=== PATIENT | female | born 1950 | race Two or more races ===

== ENCOUNTER → 2019-05-30 11:00 | Outpatient (CLI) | payer OTHER | END | disposition home or self-care (01) | LOC: LAB 11:00 → EKG 11:00 | DX: I10 Essential (primary) hypertension (principal) ==

== ENCOUNTER 2025-07-26 06:00 | Day surgery (SDC) | payer OTHER ==
[~2025-07-26 06:00] MED LIST: SYNTHROID88 MCG PO; VITAMIN D; ZOCOR20 MG PO
[2025-07-26] MEDS ORDERED: CEFAZOLIN SODIUM 1,000 MG VIAL ONE (07:41)
[2025-07-26] MEDS ORDERED: METHYLERGONOVINE MALEATE 0.2 MG/ML AMPUL ONE ×2 (08:31→14:47)
[2025-07-26] MEDS ORDERED: ONDANSETRON HCL 2 MG/ML VIAL ONE (10:44)
[2025-07-26] MEDS ORDERED: ONDANSETRON HCL 2 MG/ML VIAL IV ONE (10:55)
[2025-07-26] MEDS ORDERED: METHYLERGONOVINE MALEATE 0.2 MG/ML AMPUL IM SCH (12:15)
== END 2025-07-26 15:30 | disposition home or self-care (01) ==
LOC: CIR.AMB 06:00
PROVIDERS: ATTEND Obstetrics & Gynecology
DX: D25.0 Submucous leiomyoma of uterus (principal); N95.0 Postmenopausal bleeding; Z88.6 Allergy status to analgesic agent

== ENCOUNTER 2025-07-26 22:29 | Inpatient (IN) | payer OTHER ==
[~2025-07-26] VITALS: Ht 162.6 cm; Wt 66.2 kg
[2025-07-27] MEDS ORDERED: MORPHINE SULFATE 4 MG/ML VIAL IV STA (03:56)
[2025-07-27] MEDS ORDERED: 0.9 % SODIUM CHLORIDE 1,000 ML IV STA (03:56)
[2025-07-27 04:45] LABS: BASO % 0.2 % (0.1-1.2); EOS # 0.00 (0.04-0.54); EOS % 0.0 % (0.7-7.0); LYMPH # 0.35 (1.18-3.74); LYMPH % 5.9 % (19.3-53.1); MEAN PLATELET VOLUME 10.70 fl (9.4-12.4); MONO # 0.24 (0.24-0.82); MONO % 4.0 % (4.7-12.5); NEUT # 5.35 (1.56-6.13); NEUT % 89.7 % (34.0-71.1); RED CELL DISTRIBUTION WIDTH 12.8 % (11.6-14.4)
[2025-07-27 05:06] LABS: INR 1.04
[2025-07-27 05:09] LABS: ALT/SGPT 20.0 U/L (12-78); AST/SGOT 11.0 U/L (15-37); BILIRUBIN TOTAL 0.68 mg/dL (0.3-1.2); BUN CREA RATIO 24.0 (7.0-25.0); CREATININE SERUM 0.79 mg/dL (0.55-1.02); GFR 70.76; GLOBULINA 2.9 G/DL (2.4-3.5); GLUCOSE FASTING 171.0 mg/dL (65-100); OSMOLALITY SERUM 291.0 MOSM/KG (275-295)
[2025-07-27] MEDS ORDERED: BARIUM SULFATE 450 ML ORAL.SUSP PO ONE (07:44)
[2025-07-27] MEDS ORDERED: MORPHINE SULFATE 4 MG/ML VIAL IV PRN (07:45)
[2025-07-27] MEDS ORDERED: PROMETHAZINE HCL 25 MG/ML AMPUL ONE (08:59)
[2025-07-27] MEDS ORDERED: PROMETHAZINE HCL 25 MG/ML AMPUL IV ONE (09:00)
[2025-07-27] MEDS ORDERED: RINGERS SOLUTION,LACTATED 1,000 ML IV SCH (13:30)
[2025-07-27 13:50] VITALS: BP 109/66; O2SAT 97
[2025-07-27] MEDS ORDERED: FAMOTIDINE/PF 20 MG/2 ML VIAL IV SCH (14:19)
[2025-07-27] MEDS ORDERED: PIPERACILLIN/TAZOBACTAM SODIUM 3.375 GM in 0.9 % SODIUM CHLORIDE 100 ML IV SCH (14:20)
[2025-07-27] MEDS ORDERED: ONDANSETRON HCL 2 MG/ML VIAL IM PRN ×2 (14:30→19:15)
[2025-07-27] MEDS ORDERED: FAMOTIDINE/PF 20 MG/2 ML VIAL ONE (14:43)
[2025-07-27] MEDS ORDERED: PIPERACILLIN/TAZOBACTAM SODIUM 3.375 GM VIAL IV ONE (14:43)
[2025-07-27] MEDS ORDERED: ENALAPRILAT DIHYDRATE 1.25 MG/ML VIAL IV PRN (14:45)
[2025-07-27 15:05] LABS: COVID-19 AG NEGATIVE (NEGATIVE)
[2025-07-27 21:30] VITALS: BP 99/63; O2SAT 95
[2025-07-28 01:15] VITALS: BP 113/74; O2SAT 95
[2025-07-28] MEDS ORDERED: PATIENTS OWN MEDICATION (MEDICAMENTO EN PISO) PO SCH (06:00)
[2025-07-28 08:00] VITALS: BP 125/74; O2SAT 95
[2025-07-28 08:05] LABS: BASO % 0.1 % (0.1-1.2); EOS # 0.00 (0.04-0.54); EOS % 0.0 % (0.7-7.0); LYMPH # 0.68 (1.18-3.74); LYMPH % 6.9 % (19.3-53.1); MEAN PLATELET VOLUME 11.10 fl (9.4-12.4); MONO # 0.59 (0.24-0.82); MONO % 6.0 % (4.7-12.5); NEUT # 8.55 (1.56-6.13); NEUT % 86.6 % (34.0-71.1); RED CELL DISTRIBUTION WIDTH 13.3 % (11.6-14.4)
[2025-07-28 08:13] LABS: BUN CREA RATIO 28.0 (7.0-25.0); CREATININE SERUM 0.79 mg/dL (0.55-1.02); GFR 70.76; GLUCOSE FASTING 111.0 mg/dL (65-100); OSMOLALITY SERUM 285.0 MOSM/KG (275-295)
[2025-07-28] MEDS ORDERED: ENOXAPARIN SODIUM 40 MG/0.4 ML SYRINGE SUBCUTANEO SCH (09:00)
[2025-07-28] MEDS ORDERED: DIPHENHYDRAMINE HCL 50 MG/ML VIAL 1ML IV STA (12:04)
[2025-07-28] MEDS ORDERED: DIPHENHYDRAMINE HCL 50 MG/ML VIAL 1ML ONE (12:18)
[2025-07-28] MEDS ORDERED: ACETAMINOPHEN 500 MG GEL..CAP PO PRN (15:00)
[2025-07-28 16:00] VITALS: BP 108/71; O2SAT 94
[2025-07-28] MEDS ORDERED: LEVALBUTEROL HCL 0.63 MG/3 ML SOLUTION IH SCH (18:30)
[2025-07-29 00:03] VITALS: BP 128/78; O2SAT 95
[2025-07-29 07:51] LABS: BASO % 0.1 % (0.1-1.2); EOS # 0.02 (0.04-0.54); EOS % 0.2 % (0.7-7.0); LYMPH # 0.63 (1.18-3.74); LYMPH % 5.8 % (19.3-53.1); MEAN PLATELET VOLUME 10.90 fl (9.4-12.4); MONO # 0.50 (0.24-0.82); MONO % 4.6 % (4.7-12.5); NEUT # 9.68 (1.56-6.13); NEUT % 88.8 % (34.0-71.1); RED CELL DISTRIBUTION WIDTH 13.2 % (11.6-14.4)
[2025-07-29 08:13] LABS: BUN CREA RATIO 28.0 (7.0-25.0); CREATININE SERUM 0.75 mg/dL (0.55-1.02); GFR 75.13; GLUCOSE FASTING 116.0 mg/dL (65-100); OSMOLALITY SERUM 285.0 MOSM/KG (275-295)
[2025-07-29 08:21] VITALS: BP 140/79; O2SAT 96
[2025-07-29 11:03] LABS: URINE APPEARANCE Cloudy; URINE BILIRRUBIN Negative (NEGATIVE); URINE BLOOD Small; URINE COLOR Yellow; URINE GLUCOSE Negative (NEGATIVE); URINE KETONE Trace (NEGATIVE); URINE LEUKOCYTE Negative; URINE NITRATE Negative; URINE UROBILINOGEN 0.2 E.U./dl
[2025-07-29 11:23] LABS: URINE CRYSTALS MANY /HPF; URINE RBC 0-3 /HPF; URINE WBC 0-2 /hpf
[2025-07-29 11:25] LABS: URINE BACTERIA FEW; URINE PROTEIN 100 (NEGATIVE)
[2025-07-29] MEDS ORDERED: MAGNESIUM HYDROXIDE 30 ML BLIST.PACK PO SCH (14:00)
[2025-07-29 16:00] VITALS: BP 145/88; O2SAT 95
[2025-07-29] MEDS ORDERED: POLYETHYLENE GLYCOL 3350 17 GM BLIST.PACK PO SCH (17:00)
[2025-07-29] MEDS ORDERED: SUCRALFATE 1 G TABLET PO SCH (17:00)
[2025-07-29] MEDS ORDERED: PANTOPRAZOLE SODIUM 40 MG TABLET.DR PO SCH (17:00)
[2025-07-29 23:52] VITALS: BP 120/63; O2SAT 97
[2025-07-30 07:30] LABS: BASO % 0.1 % (0.1-1.2); EOS # 0.12 (0.04-0.54); EOS % 1.5 % (0.7-7.0); LYMPH # 0.59 (1.18-3.74); LYMPH % 7.3 % (19.3-53.1); MEAN PLATELET VOLUME 10.40 fl (9.4-12.4); MONO # 0.74 (0.24-0.82); MONO % 9.1 % (4.7-12.5); NEUT # 6.59 (1.56-6.13); NEUT % 81.0 % (34.0-71.1); RED CELL DISTRIBUTION WIDTH 13.2 % (11.6-14.4)
[2025-07-30 08:07] LABS: ALT/SGPT 17.0 U/L (12-78); AST/SGOT 17.0 U/L (15-37); BILIRUBIN TOTAL 0.79 mg/dL (0.3-1.2); BUN CREA RATIO 24.0 (7.0-25.0); CREATININE SERUM 0.79 mg/dL (0.55-1.02); GFR 70.76; GLOBULINA 2.7 G/DL (2.4-3.5); GLUCOSE FASTING 122.0 mg/dL (65-100); OSMOLALITY SERUM 287.0 MOSM/KG (275-295)
[2025-07-30 08:19] VITALS: BP 133/77; O2SAT 95
[2025-07-30 16:00] VITALS: BP 142/81; O2SAT 96
[2025-07-31 00:55] VITALS: BP 119/72; O2SAT 95
[2025-07-31 08:53] VITALS: BP 135/80; O2SAT 97
[2025-07-31 14:38] LABS: BASO % 0.3 % (0.1-1.2); EOS # 0.09 (0.04-0.54); EOS % 0.8 % (0.7-7.0); LYMPH # 1.16 (1.18-3.74); LYMPH % 10.1 % (19.3-53.1); MEAN PLATELET VOLUME 9.80 fl (9.4-12.4); MONO # 1.04 (0.24-0.82); MONO % 9.1 % (4.7-12.5); NEUT # 8.50 (1.56-6.13); NEUT % 74.3 % (34.0-71.1); RED CELL DISTRIBUTION WIDTH 13.5 % (11.6-14.4)
[2025-07-31 15:32] LABS: BAND MAN 3.0 %; EOSINOPHIL MAN 1.0 %; LYMPHOCYTE MAN 6.0 %; MONOCYTE MAN 10.0 %; MYELOCYTE 3.0 %; NEUTROPHILS MAN 77.0 %
[2025-07-31 16:02] VITALS: BP 136/61; O2SAT 97
[2025-08-01 01:37] VITALS: BP 137/72; O2SAT 95
[2025-08-01 08:26] VITALS: BP 132/79; O2SAT 94
[2025-08-01] MEDS ORDERED: CEFTRIAXONE SODIUM 2,000 MG in 0.9 % SODIUM CHLORIDE 100 ML IV SCH (09:59)
[2025-08-01 10:15] LABS: ABG PH 7.478 (7.35-7.45); ABG PO2 67.9 mmHg (80-100)
[2025-08-01 10:16] LABS: BICARBONATE 24.1 mmol/l (23-25); o2 21 %
[2025-08-01] MEDS ORDERED: ACETAMINOPHEN 500 MG GEL..CAP PO PRN (16:45)
[2025-08-01 16:56] VITALS: BP 138/85; O2SAT 99
[2025-08-01] MEDS ORDERED: SOD FERRIC GLUC COMPLX/SUCROSE 62.5 MG/5 ML AMPUL IV SCH (17:00)
[2025-08-01 18:29] LABS: INR 1.04
[2025-08-02 01:47] VITALS: BP 134/83; O2SAT 98
[2025-08-02 06:20] LABS: BASO % 0.2 % (0.1-1.2); EOS # 0.11 (0.04-0.54); EOS % 0.4 % (0.7-7.0); LYMPH # 1.65 (1.18-3.74); LYMPH % 6.3 % (19.3-53.1); MEAN PLATELET VOLUME 9.60 fl (9.4-12.4); MONO # 1.54 (0.24-0.82); MONO % 5.9 % (4.7-12.5); NEUT # 21.13 (1.56-6.13); NEUT % 81.4 % (34.0-71.1); RED CELL DISTRIBUTION WIDTH 13.9 % (11.6-14.4)
[2025-08-02 07:02] LABS: ALT/SGPT 20.0 U/L (12-78); AST/SGOT 22.0 U/L (15-37); BILIRUBIN TOTAL 0.44 mg/dL (0.3-1.2); BUN CREA RATIO 26.0 (7.0-25.0); CREATININE SERUM 0.5 mg/dL (0.55-1.02); GFR 119.96; GLOBULINA 2.8 G/DL (2.4-3.5); GLUCOSE FASTING 85.0 mg/dL (65-100); OSMOLALITY SERUM 281.0 MOSM/KG (275-295)
[2025-08-02 07:51] LABS: BAND MAN 21.0 %; LYMPHOCYTE MAN 7.0 %; MONOCYTE MAN 6.0 %; NEUTROPHILS MAN 66.0 %
[2025-08-02 08:00] VITALS: BP 146/80; O2SAT 95
[2025-08-02] MEDS ORDERED: DIATRIZOATE MEGLUMINE, SODIUM 30 ML BOTTLE PO NR (16:50)
[2025-08-02 18:58] VITALS: BP 148/82; O2SAT 95
[2025-08-02] MEDS ORDERED: PEG3350/SOD SULF,BICARB,CL/KCL 4,000 ML GALLON PO NR (19:00)
[2025-08-03] VITALS: BP 144/75; O2SAT 97
[2025-08-03] MEDS ORDERED: NA PHOS,M-B/NA PHOS,DI-BA 1 BOTTLE ENEMA RECTAL NR (06:00)
[2025-08-03 06:16] LABS: BASO % 0.2 % (0.1-1.2); EOS # 0.14 (0.04-0.54); EOS % 0.6 % (0.7-7.0); LYMPH # 1.33 (1.18-3.74); LYMPH % 5.2 % (19.3-53.1); MEAN PLATELET VOLUME 9.40 fl (9.4-12.4); MONO # 1.38 (0.24-0.82); MONO % 5.4 % (4.7-12.5); NEUT # 21.06 (1.56-6.13); NEUT % 82.9 % (34.0-71.1); RED CELL DISTRIBUTION WIDTH 14.3 % (11.6-14.4)
[2025-08-03 06:59] LABS: BAND MAN 11.0 %; LYMPHOCYTE MAN 4.0 %; MONOCYTE MAN 5.0 %; NEUTROPHILS MAN 80.0 %
[2025-08-03 07:02] LABS: BUN CREA RATIO 18.0 (7.0-25.0); CREATININE SERUM 0.55 mg/dL (0.55-1.02); GFR 107.46; GLUCOSE FASTING 90.0 mg/dL (65-100); OSMOLALITY SERUM 284.0 MOSM/KG (275-295)
[2025-08-03 08:00] VITALS: BP 139/70; O2SAT 99
[2025-08-03 16:09] VITALS: BP 145/81; O2SAT 95; O2SAT 98
[2025-08-04 00:30] VITALS: BP 147/78; O2SAT 95
[2025-08-04 08:00] VITALS: BP 153/80; O2SAT 97
[2025-08-04 12:30] LABS: BASO % 0.3 % (0.1-1.2); EOS # 0.03 (0.04-0.54); EOS % 0.1 % (0.7-7.0); LYMPH # 1.27 (1.18-3.74); LYMPH % 4.5 % (19.3-53.1); MEAN PLATELET VOLUME 8.80 fl (9.4-12.4); MONO # 1.48 (0.24-0.82); MONO % 5.3 % (4.7-12.5); NEUT # 23.95 (1.56-6.13); NEUT % 85.3 % (34.0-71.1); RED CELL DISTRIBUTION WIDTH 14.6 % (11.6-14.4)
[2025-08-04 17:49] VITALS: BP 126/75; O2SAT 98
[2025-08-05 01:02] VITALS: BP 143/75; O2SAT 97
[2025-08-05 08:39] VITALS: BP 154/78; O2SAT 95
[2025-08-05] MEDS ORDERED: DIATRIZOATE MEGLUMINE, SODIUM 30 ML BOTTLE PO NR (09:15)
[2025-08-05] MEDS ORDERED: CEFEPIME HCL 2,000 MG VIAL IV SCH (13:00)
[2025-08-05 16:00] VITALS: BP 146/77; O2SAT 95
[2025-08-05 16:10] LABS: BASO % 0.3 % (0.1-1.2); EOS # 0.07 (0.04-0.54); EOS % 0.3 % (0.7-7.0); LYMPH # 1.10 (1.18-3.74); LYMPH % 4.9 % (19.3-53.1); MEAN PLATELET VOLUME 9.20 fl (9.4-12.4); MONO # 1.21 (0.24-0.82); MONO % 5.4 % (4.7-12.5); NEUT # 18.97 (1.56-6.13); NEUT % 85.2 % (34.0-71.1); RED CELL DISTRIBUTION WIDTH 14.6 % (11.6-14.4)
[2025-08-05 16:35] LABS: BAND MAN 2.0 %; LYMPHOCYTE MAN 10.0 %; METAMYELOCYTE 3.0 %; MONOCYTE MAN 5.0 %; NEUTROPHILS MAN 78.0 %
[2025-08-05] MEDS ORDERED: LOPERAMIDE HCL 2 MG CAPSULE PO ONE (23:00)
[2025-08-06 00:42] VITALS: BP 134/82; O2SAT 98
[2025-08-06 08:00] VITALS: BP 132/77
[2025-08-06] MEDS ORDERED: PIPERACILLIN/TAZOBACTAM SODIUM 4.5 GM in 0.9 % SODIUM CHLORIDE 100 ML IV SCH (09:42)
[2025-08-06] MEDS ORDERED: SIMETHICONE 125 MG CAPSULE PO SCH (11:00)
[2025-08-07 02:01] VITALS: BP 141/83; O2SAT 94
[2025-08-07 08:00] VITALS: BP 121/77; O2SAT 94
[2025-08-07 17:17] VITALS: BP 120/69; O2SAT 95
[2025-08-08 00:58] VITALS: BP 119/71; O2SAT 97
[2025-08-08] MEDS ORDERED: NA PHOS,M-B/NA PHOS,DI-BA 1 BOTTLE ENEMA RECTAL NR (05:00)
[2025-08-08 06:51] LABS: BASO % 0.5 % (0.1-1.2); EOS # 0.06 (0.04-0.54); EOS % 0.6 % (0.7-7.0); LYMPH # 0.96 (1.18-3.74); LYMPH % 9.4 % (19.3-53.1); MEAN PLATELET VOLUME 9.10 fl (9.4-12.4); MONO # 0.90 (0.24-0.82); MONO % 8.8 % (4.7-12.5); NEUT # 8.01 (1.56-6.13); NEUT % 78.7 % (34.0-71.1); RED CELL DISTRIBUTION WIDTH 14.6 % (11.6-14.4)
[2025-08-08 06:56] LABS: BUN CREA RATIO 11.0 (7.0-25.0); CREATININE SERUM 0.66 mg/dL (0.55-1.02); GFR 87.07; GLUCOSE FASTING 112.0 mg/dL (65-100); OSMOLALITY SERUM 282.0 MOSM/KG (275-295)
[2025-08-08 08:00] VITALS: BP 133/77; O2SAT 95
[2025-08-08] MEDS ORDERED: POTASSIUM CHLORIDE IN WATER 100 ML IV NR (08:15)
[2025-08-08] MEDS ORDERED: MIDAZOLAM HCL 2 MG/2 ML VIAL IV ONE (12:15)
[2025-08-08] MEDS ORDERED: DIPHENHYDRAMINE HCL 50 MG/ML VIAL 1ML IV ONE (12:15)
[2025-08-08] MEDS ORDERED: fentaNYL CITRATE 50 MCG/ML AMPUL IV PUSH ONE (12:15)
[2025-08-08 16:00] VITALS: BP 131/71; O2SAT 94
[2025-08-08] MEDS ORDERED: AMINO ACIDS 1 EACH TABLET PO SCH (17:00)
[2025-08-09 02:23] VITALS: BP 134/75; O2SAT 96
[2025-08-09 07:30] LABS: BUN CREA RATIO 11.0 (7.0-25.0); CREATININE SERUM 0.55 mg/dL (0.55-1.02); GFR 107.46; GLUCOSE FASTING 92.0 mg/dL (65-100); OSMOLALITY SERUM 282.0 MOSM/KG (275-295)
[2025-08-09] MEDS ORDERED: MAGNESIUM SULFATE IN WATER 50 ML IV NR (08:15)
[2025-08-09 08:23] VITALS: BP 132/73; O2SAT 94
[2025-08-09] MEDS ORDERED: POTASSIUM CHLORIDE IN WATER 40 MEQ/100 ML PIGGYBAG IV ONE (08:47)
[2025-08-09] MEDS ORDERED: POTASSIUM CHLORIDE IN WATER 40 MEQ/100 ML PIGGYBAG IV SCH ×2 (09:00→17:00)
[2025-08-09 16:24] VITALS: BP 128/57; O2SAT 94
[2025-08-10 00:08] VITALS: BP 124/69; O2SAT 96
[2025-08-10 07:05] LABS: BUN CREA RATIO 13.0 (7.0-25.0); CREATININE SERUM 0.63 mg/dL (0.55-1.02); GFR 91.88; GLUCOSE FASTING 98.0 mg/dL (65-100); OSMOLALITY SERUM 281.0 MOSM/KG (275-295)
[2025-08-10 08:21] VITALS: BP 129/74; O2SAT 95
[2025-08-10] MEDS ORDERED: SPIRONOLACTONE 50 MG TABLET PO SCH (09:54)
[2025-08-10] MEDS ORDERED: POTASSIUM CHLORIDE 10 MEQ CAPSULE PO NR (10:00)
[2025-08-10] MEDS ORDERED: MAGNESIUM SULFATE IN WATER 4 GM/100 ML PIGGYBACK IV NR (10:00)
[2025-08-10] MEDS ORDERED: POTASSIUM CHLORIDE IN WATER 40 MEQ/100 ML PIGGYBAG IV NR (11:15)
[2025-08-10] MEDS ORDERED: POTASSIUM CHLORIDE IN WATER 40 MEQ/100 ML PIGGYBAG IV SCH (12:00)
[2025-08-10 16:21] VITALS: BP 111/57; O2SAT 95
[2025-08-11 00:34] VITALS: BP 128/75; O2SAT 97
[2025-08-11 08:30] VITALS: BP 131/75; O2SAT 96
[2025-08-11 11:58] LABS: BUN CREA RATIO 11.0 (7.0-25.0); CREATININE SERUM 0.8 mg/dL (0.55-1.02); GFR 69.74; GLUCOSE FASTING 143.0 mg/dL (65-100); OSMOLALITY SERUM 279.0 MOSM/KG (275-295)
[2025-08-11 15:57] VITALS: BP 143/70; O2SAT 95
[2025-08-12 00:43] VITALS: BP 131/77; O2SAT 97
[2025-08-12 08:00] VITALS: BP 134/75; O2SAT 96
[2025-08-12] MEDS ORDERED: POTASSIUM CHLORIDE 10 MEQ CAPSULE PO NR (09:30)
[2025-08-12 16:00] VITALS: BP 111/53; O2SAT 96
[2025-08-13 00:37] VITALS: BP 109/61; O2SAT 97
[2025-08-13] MEDS ORDERED: DIATRIZOATE MEGLUMINE, SODIUM 30 ML BOTTLE PO NR (06:00)
[2025-08-13 06:55] LABS: BASO % 1.1 % (0.1-1.2); EOS # 0.18 (0.04-0.54); EOS % 3.9 % (0.7-7.0); LYMPH # 1.52 (1.18-3.74); LYMPH % 32.8 % (19.3-53.1); MEAN PLATELET VOLUME 9.40 fl (9.4-12.4); MONO # 0.68 (0.24-0.82); NEUT # 2.15 (1.56-6.13); NEUT % 46.2 % (34.0-71.1); RED CELL DISTRIBUTION WIDTH 15.0 % (11.6-14.4)
[2025-08-13 07:02] LABS: MONO % 14.7 % (4.7-12.5)
[2025-08-13 07:07] LABS: BUN CREA RATIO 12.0 (7.0-25.0); CREATININE SERUM 0.66 mg/dL (0.55-1.02); GFR 87.07; GLUCOSE FASTING 86.0 mg/dL (65-100); OSMOLALITY SERUM 283.0 MOSM/KG (275-295)
[2025-08-13 08:18] VITALS: BP 138/76; O2SAT 97
[2025-08-13] MEDS ORDERED: SODIUM CL 0.9% 100 ML IV.SOLN IV ONE ×2 (14:18→16:17)
[2025-08-13 15:43] VITALS: BP 146/74; O2SAT 95
[2025-08-14 00:30] VITALS: BP 136/78; O2SAT 99
[2025-08-14 11:11] VITALS: BP 138/71; O2SAT 97
[2025-08-14] MEDS ORDERED: BUPIVACAINE HCL/MPF 0.5% 30ML VIAL ONE (12:21)
[2025-08-14] MEDS ORDERED: LIDOCAINE HCL 1%/EPINEPHRINE 20ML VIAL IJ ONE (12:21)
[2025-08-14] MEDS ORDERED: SUGAMMADEX SODIUM 200 MG/2 ML VIAL IV ONE ×2 (15:12→16:00)
[2025-08-14] MEDS ORDERED: ONDANSETRON HCL 2 MG/ML VIAL IV PRN ×2 (15:30)
[2025-08-14] MEDS ORDERED: 0.9 % SODIUM CHLORIDE 1,000 ML IV SCH (15:30)
[2025-08-14] MEDS ORDERED: OxyCODONE HCL 5 MG TABLET (ROXICODONE) PO PRN (15:30)
[2025-08-14] MEDS ORDERED: MORPHINE SULFATE 4 MG/ML CARTRIDGE IV PRN ×2 (15:30)
[2025-08-14] MEDS ORDERED: RINGERS SOLUTION,LACTATED 1,000 ML IV SCH (15:30)
[2025-08-14] MEDS ORDERED: DEXTROSE 50 % IN WATER 0.5 G/ML VIAL IV PRN (15:30)
[2025-08-14] MEDS ORDERED: METOCLOPRAMIDE HCL 5 MG/ML VIAL IV SCH (17:00)
[2025-08-14] MEDS ORDERED: SUCRALFATE 1 G TABLET PO SCH (17:00)
[2025-08-14] MEDS ORDERED: CELECOXIB 200 MG CAPSULE PO SCH (17:00)
[2025-08-14] MEDS ORDERED: HYOSCYAMINE SULFATE 0.125 MG TAB.SUBL SL SCH ×2 (17:00)
[2025-08-14] MEDS ORDERED: SIMETHICONE 125 MG CAPSULE PO SCH (17:00)
[2025-08-14] MEDS ORDERED: GABAPENTIN 300 MG CAPSULE PO SCH ×2 (17:00)
[2025-08-14] MEDS ORDERED: ENALAPRILAT DIHYDRATE 1.25 MG/ML VIAL IV ONE (17:52)
[2025-08-14 18:36] LABS: BASO % 1.0 % (0.1-1.2); EOS # 0.11 (0.04-0.54); EOS % 2.1 % (0.7-7.0); LYMPH # 1.27 (1.18-3.74); LYMPH % 24.8 % (19.3-53.1); MEAN PLATELET VOLUME 8.80 fl (9.4-12.4); MONO # 0.71 (0.24-0.82); NEUT # 2.89 (1.56-6.13); NEUT % 56.4 % (34.0-71.1); RED CELL DISTRIBUTION WIDTH 14.9 % (11.6-14.4)
[2025-08-14 18:45] LABS: MONO % 13.9 % (4.7-12.5)
[2025-08-14] MEDS ORDERED: PIPERACILLIN/TAZOBACTAM SODIUM 4.5 GM VIAL IV SCH (20:00)
[2025-08-14] MEDS ORDERED: ACETAMINOPHEN 500 MG GEL..CAP PO SCH ×2 (20:00)
[2025-08-14 20:36] VITALS: BP 128/70; O2SAT 95
[2025-08-14] MEDS ORDERED: FAMOTIDINE/PF 20 MG/2 ML VIAL IV PUSH SCH ×2 (21:00)
[2025-08-15 00:42] VITALS: BP 133/76; O2SAT 98
[2025-08-15 06:54] LABS: BASO % 0.7 % (0.1-1.2); EOS # 0.10 (0.04-0.54); EOS % 1.9 % (0.7-7.0); LYMPH # 1.43 (1.18-3.74); LYMPH % 26.7 % (19.3-53.1); MEAN PLATELET VOLUME 9.30 fl (9.4-12.4); MONO # 0.51 (0.24-0.82); MONO % 9.5 % (4.7-12.5); NEUT # 3.12 (1.56-6.13); NEUT % 58.4 % (34.0-71.1); RED CELL DISTRIBUTION WIDTH 15.5 % (11.6-14.4)
[2025-08-15 08:00] VITALS: BP 128/72; O2SAT 95
[2025-08-15 08:05] LABS: BUN CREA RATIO 9.0 (7.0-25.0); CREATININE SERUM 0.79 mg/dL (0.55-1.02); GFR 70.76; GLUCOSE FASTING 108.0 mg/dL (65-100); OSMOLALITY SERUM 289.0 MOSM/KG (275-295)
[2025-08-15 08:05] LABS: BUN CREA RATIO 10.0 (7.0-25.0); CREATININE SERUM 0.68 mg/dL (0.55-1.02); GFR 84.12; GLUCOSE FASTING 110.0 mg/dL (65-100); OSMOLALITY SERUM 284.0 MOSM/KG (275-295)
[2025-08-15] MEDS ORDERED: LACTOBACILLUS ACIDOPHILUS 1 CAP CAP PO SCH ×2 (09:00)
[2025-08-15] MEDS ORDERED: LACTULOSE 20 G/30 ML BLIST.PACK PO SCH (09:00)
[2025-08-15] MEDS ORDERED: SPIRONOLACTONE 50 MG TABLET PO SCH (09:00)
[2025-08-15] MEDS ORDERED: DEXTROSE 50 % IN WATER 0.5 G/ML VIAL IV PRN (12:30)
[2025-08-15] MEDS ORDERED: INSULIN LISPRO 1,000 UNIT/10 ML UNITS SUBCUTANEO PRN (12:30)
[2025-08-15 16:00] VITALS: BP 132/71; O2SAT 95
[2025-08-15] MEDS ORDERED: ENOXAPARIN SODIUM 40 MG/0.4 ML SYRINGE SUBCUTANEO SCH ×2 (17:00)
[2025-08-16 01:29] VITALS: BP 131/82; O2SAT 97
[2025-08-16 07:46] LABS: BASO % 0.7 % (0.1-1.2); EOS # 0.17 (0.04-0.54); EOS % 3.0 % (0.7-7.0); LYMPH # 1.14 (1.18-3.74); LYMPH % 20.4 % (19.3-53.1); MEAN PLATELET VOLUME 8.90 fl (9.4-12.4); MONO # 0.70 (0.24-0.82); NEUT # 3.37 (1.56-6.13); NEUT % 60.2 % (34.0-71.1); RED CELL DISTRIBUTION WIDTH 15.5 % (11.6-14.4)
[2025-08-16 08:19] LABS: BAND MAN 7.0 %; EOSINOPHIL MAN 2.0 %; LYMPHOCYTE MAN 25.0 %; METAMYELOCYTE 2.0 %; MONO % 12.5 % (4.7-12.5); MONOCYTE MAN 4.0 %; NEUTROPHILS MAN 60.0 %
[2025-08-16 08:25] VITALS: BP 136/76; O2SAT 95
[2025-08-16 08:31] LABS: BUN CREA RATIO 11.0 (7.0-25.0); CREATININE SERUM 0.93 mg/dL (0.55-1.02); GFR 58.61; GLUCOSE FASTING 94.0 mg/dL (65-100); OSMOLALITY SERUM 286.0 MOSM/KG (275-295)
[2025-08-16] MEDS ORDERED: ENOXAPARIN SODIUM 40 MG/0.4 ML SYRINGE SUBCUTANEO SCH ×2 (09:00)
[2025-08-16 16:00] VITALS: BP 150/79; O2SAT 96
[2025-08-17 02:33] VITALS: BP 133/73; O2SAT 98
[2025-08-17 08:00] VITALS: BP 136/78; O2SAT 95
[2025-08-17 16:16] VITALS: BP 132/76; O2SAT 96
[2025-08-18] MEDS ORDERED: METOCLOPRAMIDE HCL 10 MG TABLET PO SCH (01:00)
[2025-08-18 01:03] VITALS: BP 132/74; O2SAT 99
[2025-08-18 08:00] VITALS: BP 143/79; O2SAT 96
[2025-08-18 17:07] VITALS: BP 138/77; O2SAT 98
[2025-08-19 01:41] VITALS: BP 126/75; O2SAT 98
[2025-08-19] MEDS ORDERED: DIATRIZOATE MEGLUMINE, SODIUM 30 ML BOTTLE PO NR (05:00)
[2025-08-19 08:22] VITALS: BP 156/78; O2SAT 96
[2025-08-19 16:00] VITALS: BP 150/85; O2SAT 97
[2025-08-20 01:11] VITALS: BP 134/79; O2SAT 97
[2025-08-20 08:00] VITALS: BP 130/69; O2SAT 98
[2025-08-20 16:45] VITALS: BP 145/76; O2SAT 98
[2025-08-21 00:15] VITALS: BP 151/75; O2SAT 95
[2025-08-21 09:15] VITALS: BP 146/82; O2SAT 97
[2025-08-21] MEDS ORDERED: SODIUM CL 0.9% 100 ML IV.SOLN IV ONE (14:57)
[2025-08-21 15:33] LABS: BASO % 1.2 % (0.1-1.2); BUN CREA RATIO 12.0 (7.0-25.0); CREATININE SERUM 0.83 mg/dL (0.55-1.02); EOS # 0.41 (0.04-0.54); EOS % 4.8 % (0.7-7.0); GFR 66.84; GLUCOSE FASTING 119.0 mg/dL (65-100); LYMPH # 1.22 (1.18-3.74); LYMPH % 14.2 % (19.3-53.1); MEAN PLATELET VOLUME 9.60 fl (9.4-12.4); MONO # 0.82 (0.24-0.82); MONO % 9.5 % (4.7-12.5); NEUT # 5.74 (1.56-6.13); NEUT % 66.7 % (34.0-71.1); OSMOLALITY SERUM 283.0 MOSM/KG (275-295); RED CELL DISTRIBUTION WIDTH 16.1 % (11.6-14.4)
[2025-08-21 16:00] VITALS: BP 135/80; O2SAT 97
[2025-08-21 16:02] LABS: BASOPHIL MAN 2.0 %; EOSINOPHIL MAN 5.0 %; LYMPHOCYTE MAN 14.0 %; MONOCYTE MAN 11.0 %; MYELOCYTE 3.0 %; NEUTROPHILS MAN 64.0 %
[2025-08-21] MEDS ORDERED: fentaNYL CITRATE 50 MCG/ML AMPUL IV PUSH ONE (17:45)
[2025-08-21] MEDS ORDERED: MIDAZOLAM HCL 2 MG/2 ML VIAL IV PUSH ONE (17:45)
[2025-08-22 00:40] VITALS: BP 134/80; O2SAT 98
[2025-08-22 08:00] VITALS: BP 132/76; O2SAT 95
[2025-08-22] MEDS ORDERED: AMLODIPINE BESYLATE 5 MG TABLET PO SCH (09:00)
[2025-08-22 17:34] VITALS: BP 122/74; O2SAT 95
[2025-08-23 01:12] VITALS: BP 133/76; O2SAT 97
[2025-08-23 07:02] LABS: BUN CREA RATIO 11.0 (7.0-25.0); CREATININE SERUM 0.85 mg/dL (0.55-1.02); GFR 65.03; GLUCOSE FASTING 110.0 mg/dL (65-100); OSMOLALITY SERUM 286.0 MOSM/KG (275-295)
[2025-08-23 10:47] VITALS: BP 103/66; BP 117/77; O2SAT 96
[2025-08-23 16:00] VITALS: BP 118/62; O2SAT 95
[2025-08-24 01:50] VITALS: BP 109/69; O2SAT 96
[2025-08-24 08:52] VITALS: BP 143/80; O2SAT 95
[2025-08-24] MEDS ORDERED: MEROPENEM 500 MG/VIAL VIAL IV SCH (12:00)
[2025-08-24 16:15] VITALS: BP 129/73; O2SAT 98
[2025-08-24] MEDS ORDERED: VANCOMYCIN HCL 1,000 MG VIAL ONE (16:15)
[2025-08-24] MEDS ORDERED: VANCOMYCIN HCL 1,000 MG VIAL IV SCH (17:00)
[2025-08-25 00:41] VITALS: BP 132/76; O2SAT 96
[2025-08-25] MEDS ORDERED: VANCOMYCIN HCL 1,000 MG VIAL ONE ×2 (04:18→15:50)
[2025-08-25 08:00] VITALS: BP 127/69; O2SAT 95
[2025-08-25 12:32] LABS: BASO % 0.6 % (0.1-1.2); EOS # 0.07 (0.04-0.54); EOS % 0.8 % (0.7-7.0); LYMPH # 1.38 (1.18-3.74); LYMPH % 14.8 % (19.3-53.1); MEAN PLATELET VOLUME 9.40 fl (9.4-12.4); MONO # 0.82 (0.24-0.82); MONO % 8.8 % (4.7-12.5); NEUT # 6.88 (1.56-6.13); NEUT % 73.8 % (34.0-71.1); RED CELL DISTRIBUTION WIDTH 16.3 % (11.6-14.4)
[2025-08-25 13:05] LABS: BUN CREA RATIO 15.0 (7.0-25.0); CREATININE SERUM 0.75 mg/dL (0.55-1.02); GFR 75.13; GLUCOSE FASTING 100.0 mg/dL (65-100); OSMOLALITY SERUM 283.0 MOSM/KG (275-295)
[2025-08-25 16:00] VITALS: BP 121/68; O2SAT 98
[2025-08-26 00:16] VITALS: BP 133/76; O2SAT 97
[2025-08-26] MEDS ORDERED: VANCOMYCIN HCL 1,000 MG VIAL ONE ×2 (04:25→15:25)
[2025-08-26 06:00] LABS: BASO % 0.9 % (0.1-1.2); EOS # 0.17 (0.04-0.54); EOS % 2.0 % (0.7-7.0); LYMPH # 1.41 (1.18-3.74); LYMPH % 16.2 % (19.3-53.1); MEAN PLATELET VOLUME 9.50 fl (9.4-12.4); MONO # 0.79 (0.24-0.82); MONO % 9.1 % (4.7-12.5); NEUT # 6.11 (1.56-6.13); NEUT % 70.2 % (34.0-71.1); RED CELL DISTRIBUTION WIDTH 16.2 % (11.6-14.4)
[2025-08-26] MEDS ORDERED: DIATRIZOATE MEGLUMINE, SODIUM 30 ML BOTTLE PO NR (06:00)
[2025-08-26 08:00] VITALS: BP 125/72; O2SAT 96
[2025-08-26 12:20] VITALS: BP 164/84; O2SAT 98
[2025-08-26 16:00] VITALS: BP 117/68; O2SAT 97
[2025-08-27 00:06] VITALS: BP 119/73; O2SAT 95
[2025-08-27] MEDS ORDERED: VANCOMYCIN HCL 1,000 MG VIAL ONE ×2 (02:10→14:42)
[2025-08-27 06:44] LABS: BUN CREA RATIO 17.0 (7.0-25.0); CREATININE SERUM 1.02 mg/dL (0.55-1.02); GFR 52.69; GLUCOSE FASTING 111.0 mg/dL (65-100); OSMOLALITY SERUM 285.0 MOSM/KG (275-295)
[2025-08-27 08:47] VITALS: BP 113/68; O2SAT 94
[2025-08-27 15:57] VITALS: BP 113/69; O2SAT 98
[2025-08-28] MEDS ORDERED: MEROPENEM 500 MG/VIAL VIAL IV SCH ×2 (01:00→12:00)
[2025-08-28 01:35] VITALS: BP 118/74; O2SAT 97
[2025-08-28 06:40] LABS: BASO % 0.9 % (0.1-1.2); EOS # 0.27 (0.04-0.54); EOS % 2.6 % (0.7-7.0); LYMPH # 1.55 (1.18-3.74); LYMPH % 15.1 % (19.3-53.1); MEAN PLATELET VOLUME 10.90 fl (9.4-12.4); MONO # 0.76 (0.24-0.82); MONO % 7.4 % (4.7-12.5); NEUT # 7.51 (1.56-6.13); NEUT % 73.2 % (34.0-71.1); RED CELL DISTRIBUTION WIDTH 16.3 % (11.6-14.4)
[2025-08-28 07:09] LABS: ALT/SGPT 16.0 U/L (12-78); AST/SGOT 13.0 U/L (15-37); BILIRUBIN TOTAL 0.35 mg/dL (0.3-1.2); BUN CREA RATIO 24.0 (7.0-25.0); CREATININE SERUM 0.76 mg/dL (0.55-1.02); GFR 73.99; GLOBULINA 3.6 G/DL (2.4-3.5); GLUCOSE FASTING 109.0 mg/dL (65-100); OSMOLALITY SERUM 287.0 MOSM/KG (275-295)
[2025-08-28] MEDS ORDERED: VANCOMYCIN HCL 1,000 MG VIAL IV SCH ×2 (09:00→17:00)
[2025-08-28 09:36] VITALS: BP 127/72; O2SAT 96
[2025-08-28] MEDS ORDERED: VANCOMYCIN HCL 1,000 MG VIAL ONE ×2 (09:53→20:16)
[2025-08-28 16:00] VITALS: BP 104/66; O2SAT 97
[2025-08-29 01:32] VITALS: BP 113/72; O2SAT 97
[2025-08-29] MEDS ORDERED: VANCOMYCIN HCL 1,000 MG VIAL ONE ×2 (07:42→14:58)
[2025-08-29 09:10] VITALS: BP 118/78; O2SAT 97
[2025-08-29 16:31] VITALS: BP 110/69; O2SAT 98
[2025-08-30 00:34] VITALS: BP 116/76; O2SAT 95
[2025-08-30] MEDS ORDERED: VANCOMYCIN HCL 1,000 MG VIAL ONE ×3 (06:27→15:44)
[2025-08-30 06:29] LABS: BASO % 1.1 % (0.1-1.2); EOS # 0.69 (0.04-0.54); EOS % 7.1 % (0.7-7.0); LYMPH # 1.51 (1.18-3.74); LYMPH % 15.5 % (19.3-53.1); MEAN PLATELET VOLUME 10.50 fl (9.4-12.4); MONO # 0.78 (0.24-0.82); MONO % 8.0 % (4.7-12.5); NEUT # 6.56 (1.56-6.13); NEUT % 67.6 % (34.0-71.1); RED CELL DISTRIBUTION WIDTH 16.1 % (11.6-14.4)
[2025-08-30 07:02] LABS: ALT/SGPT 18.0 U/L (12-78); AST/SGOT 21.0 U/L (15-37); BILIRUBIN TOTAL 0.41 mg/dL (0.3-1.2); BUN CREA RATIO 23.0 (7.0-25.0); CREATININE SERUM 0.69 mg/dL (0.55-1.02); GFR 82.72; GLOBULINA 3.4 G/DL (2.4-3.5); GLUCOSE FASTING 100.0 mg/dL (65-100); OSMOLALITY SERUM 286.0 MOSM/KG (275-295)
[2025-08-30 07:25] LABS: ERYTHROCYTE SEDIMENTATION RATE 61 mm/hr (0-30)
[2025-08-30 07:30] VITALS: BP 117/69; O2SAT 97
[2025-08-30] MEDS ORDERED: NYSTATIN 15 GM BOTTLE TOP SCH (17:00)
[2025-08-30] MEDS ORDERED: NYSTATIN 100,000 UNITS/ML ML PO SCH (17:00)
[2025-08-30 17:55] VITALS: BP 119/77; O2SAT 99
[2025-08-31 00:45] VITALS: BP 120/61; O2SAT 95
[2025-08-31] MEDS ORDERED: VANCOMYCIN HCL 1,000 MG VIAL ONE ×2 (07:36→15:13)
[2025-08-31 08:33] VITALS: BP 135/74; O2SAT 97
[2025-08-31 16:00] VITALS: BP 115/71; O2SAT 98
[2025-09-01 01:19] VITALS: BP 135/78; O2SAT 97
[2025-09-01] MEDS ORDERED: VANCOMYCIN HCL 1,000 MG VIAL ONE (07:30)
[2025-09-01 08:00] VITALS: BP 106/73; O2SAT 96
[2025-09-02 00:32] VITALS: BP 118/74; O2SAT 98
[2025-09-02] MEDS ORDERED: VANCOMYCIN HCL 1,000 MG VIAL ONE ×2 (07:26→14:55)
[2025-09-02 08:39] VITALS: BP 125/69; O2SAT 98
[2025-09-02 16:51] VITALS: BP 112/67; O2SAT 98
[2025-09-03 01:17] VITALS: BP 120/73; O2SAT 98
[2025-09-03] MEDS ORDERED: VANCOMYCIN HCL 1,000 MG VIAL ONE (07:19)
[2025-09-03 08:00] VITALS: BP 150/76; O2SAT 99
== END 2025-09-03 12:56 | disposition home or self-care (01) | DRG 939 ==
LOC: ER 22:29 → SURH 07-27 14:14 → SEC-K 07-27 14:14 → SURH 07-27 20:38
PROVIDERS: Colon & Rectal Surgery; Internal Medicine; Internal Medicine Infectious Disease; Student in an Organized Health Care Education/Training Program; ADMIT Obstetrics & Gynecology; ATTEND Obstetrics & Gynecology
PROC: BW21ZZZ Computerized Tomography (CT Scan) of Abdomen and Pelvis (ICD-10-PCS; 2025-07-27)
PROC: BW21YZZ Computerized Tomography (CT Scan) of Abdomen and Pelvis using Other Contrast (ICD-10-PCS; 2025-07-27)
PROC: 3E0F7GC Introduction of Other Therapeutic Substance into Respiratory Tract, Via Natural or Artificial Opening (ICD-10-PCS; 2025-07-28)
PROC: 4A033R1 Measurement of Arterial Saturation, Peripheral, Percutaneous Approach (ICD-10-PCS; 2025-08-01)
PROC: BU4CZZZ Ultrasonography of Uterus and Ovaries (ICD-10-PCS; 2025-08-01)
PROC: BW21ZZZ Computerized Tomography (CT Scan) of Abdomen and Pelvis (ICD-10-PCS; 2025-08-02)
PROC: 30233N1 Transfusion of Nonautologous Red Blood Cells into Peripheral Vein, Percutaneous Approach (ICD-10-PCS; 2025-08-03)
PROC: 0W9F3ZZ Drainage of Abdominal Wall, Percutaneous Approach (ICD-10-PCS; 2025-08-03)
PROC: 0W993ZZ Drainage of Right Pleural Cavity, Percutaneous Approach (ICD-10-PCS; 2025-08-03)
PROC: BW21YZZ Computerized Tomography (CT Scan) of Abdomen and Pelvis using Other Contrast (ICD-10-PCS; 2025-08-05)
PROC: 0DJD8ZZ Inspection of Lower Intestinal Tract, Via Natural or Artificial Opening Endoscopic (ICD-10-PCS; 2025-08-08)
PROC: BW21YZZ Computerized Tomography (CT Scan) of Abdomen and Pelvis using Other Contrast (ICD-10-PCS; 2025-08-13)
PROC: 0D1L0Z4 Bypass Transverse Colon to Cutaneous, Open Approach (ICD-10-PCS; principal; 2025-08-14 14:45)
PROC: BW21ZZZ Computerized Tomography (CT Scan) of Abdomen and Pelvis (ICD-10-PCS; 2025-08-19)
PROC: 0W9F3ZZ Drainage of Abdominal Wall, Percutaneous Approach (ICD-10-PCS; 2025-08-21)
PROC: 0W993ZZ Drainage of Right Pleural Cavity, Percutaneous Approach (ICD-10-PCS; 2025-08-22)
PROC: 8E0ZXY6 Isolation (ICD-10-PCS; 2025-08-24)
PROC: BW21YZZ Computerized Tomography (CT Scan) of Abdomen and Pelvis using Other Contrast (ICD-10-PCS; 2025-08-26)
DX: G89.18 Other acute postprocedural pain (principal); K29.01 Acute gastritis with bleeding; K57.31 Diverticulosis of large intestine without perforation or abscess with bleeding; K65.1 Peritoneal abscess; K63.1 Perforation of intestine (nontraumatic); J90 Pleural effusion, not elsewhere classified; K62.5 Hemorrhage of anus and rectum; D25.0 Submucous leiomyoma of uterus; D64.9 Anemia, unspecified; Z53.09 Procedure and treatment not carried out because of other contraindication

== ENCOUNTER 2025-09-06 10:35 | Emergency (ER) | payer OTHER ==
[~2025-09-06] VITALS: Ht 167.6 cm; Wt 66.7 kg
[2025-09-06] MEDS ORDERED: 0.9 % SODIUM CHLORIDE 500 ML IV ONE (11:30)
[2025-09-06 12:15] LABS: BASO % 1.5 % (0.1-1.2); EOS # 0.18 (0.04-0.54); EOS % 2.3 % (0.7-7.0); LYMPH # 1.54 (1.18-3.74); LYMPH % 19.5 % (19.3-53.1); MEAN PLATELET VOLUME 10.10 fl (9.4-12.4); MONO # 0.76 (0.24-0.82); MONO % 9.6 % (4.7-12.5); NEUT # 5.26 (1.56-6.13); NEUT % 66.7 % (34.0-71.1); RED CELL DISTRIBUTION WIDTH 15.3 % (11.6-14.4)
[2025-09-06 12:17] LABS: URINE APPEARANCE Clear; URINE BILIRRUBIN Negative (NEGATIVE); URINE BLOOD Negative; URINE COLOR Yellow; URINE GLUCOSE Negative (NEGATIVE); URINE KETONE Negative (NEGATIVE); URINE LEUKOCYTE Negative; URINE NITRATE Negative; URINE PROTEIN Negative (NEGATIVE); URINE UROBILINOGEN 0.2 E.U./dl
[2025-09-06 12:21] LABS: URINE BACTERIA 2.4 uL (0.0-1933); URINE CAST 0.14 uL (0.0-1.40); URINE EPITHELIAL CELLS 2.1 uL (0.0-38.8); URINE RBC 2.4 uL (0.0-20.8); URINE WBC 1.6 uL (0.0-23.2)
[2025-09-06 12:42] LABS: ALT/SGPT 29.0 U/L (12-78); AST/SGOT 21.0 U/L (15-37); BILIRUBIN TOTAL 0.45 mg/dL (0.3-1.2); BILIRUBIN,CONJUGATED 0.14 mg/dL (0.0-0.2); BUN CREA RATIO 20.0 (7.0-25.0); CREATININE SERUM 0.88 mg/dL (0.55-1.02); GFR 62.47; GLUCOSE FASTING 114.0 mg/dL (65-100); OSMOLALITY SERUM 286.0 MOSM/KG (275-295); PHOSPHOKINASE CREATININE 65.0 U/L (26-192)
== END 2025-09-06 15:37 | disposition home or self-care (01) ==
LOC: ER 10:35
PROVIDERS: Emergency Medicine
DX: R53.1 Weakness (principal); Z88.6 Allergy status to analgesic agent; E03.8 Other specified hypothyroidism
CPT/HCPCS: 36415; 93005; 96365; 96366; 99283; J7042

== ENCOUNTER 2025-09-10 10:36 | Outpatient (CLI) | payer OTHER | END 2025-09-10 10:38 | disposition home or self-care (01) | LOC: TOM 10:36 | PROVIDERS: ATTEND Student in an Organized Health Care Education/Training Program | DX: K63.0 Abscess of intestine (principal) | CPT/HCPCS: 74177; Q9965 ==